=== PATIENT | male | born 1970 ===

== ENCOUNTER 2017-02-15 08:24 | Day surgery (SDC) | payer OTHER ==
--- NOTE | 2017-02-14 15:36 | GHP ---
[f rep st] PREOP HISTORY AND PHYSICAL DATE OF ADMISSION: 02/15/2017 DIAGNOSIS: Left knee medial meniscal tear. PLANNED SURGERY: Left knee arthroscopic partial medial meniscectomy. HISTORY OF PRESENT ILLNESS: The patient is a 46-year-old male with a long history of left knee pain. Subsequent MRI has shown a tear in the medial meniscus. After a course of conservative treatment, he has failed that and now opts for surgical intervention. PAST MEDICAL HISTORY: Negative. PAST SURGICAL HISTORY: Negative. MEDICATIONS: Ibuprofen and fish oil. ALLERGIES: No known drug allergies. SOCIAL HISTORY: Occasional alcohol use. No tobacco or drug use. PHYSICAL EXAMINATION: GENERAL: The patient is alert and oriented x3. NECK: Supple. Full range of motion. No carotid bruits are heard. CARDIAC: Shows a regular rate and rhythm. Normal S1, S2. N o murmurs, rubs, or gallops. PULMONARY: Shows lungs are clear to auscultation bilaterally. ABDOMEN : Shows normal active bowel sounds. Nontender, nondistended. ASSESSMENT/PLAN: The patient presents with a long history of left knee pain secondary to a work [employer]. Subsequent MRI has shown a tear in the medial meniscus and, after failing conservative treatment , he opts for surgical intervention. /[id number]/MODL
--- NOTE | 2017-02-15 07:24 | PDHPUP ---
History & Physical Update H&P update statement: This history and physical update is based on an assessment of the patient which was completed after admission or registration (within 24 hours), but prior to the surgery/procedure. H&P update: H&P reviewed & patient examined, no change in patient's condition since H&P completed
[2017-02-15] MEDS ORDERED: LR 1,000 ML IV ONE (08:38)
[2017-02-15] MEDS ORDERED: BUPIVACAINE/EPI 0.5% 30 ML SDV ONE (08:42)
[2017-02-15 08:44] VITALS: PULSE 73
--- NOTE | 2017-02-15 09:09 | PDANEPAE ---
ANE History of Present Illness L knee arthroscopy ANE Past Medical History - Cardiovascular History Hx Hypertension: No Hx Arrhythmias: No Hx Chest Pain: No Hx Coronary Artery / Peripheral Vascular Disease: No Hx CHF / Valvular Disease: No Hx Palpitations: No - Pulmonary History Hx COPD: No Hx Asthma/Reactive Airway Disease: No Hx Recent Upper Respiratory Infection: No Hx Oxygen in Use at Home: No Hx Sleep Apnea: No Sleep Apnea Screening Result - Last Documented: Negative - Neurologic History Hx Cerebrovascular Accident: No Hx Seizures: No Hx Dementia: No - Endocrine History Hx Diabetes: No Obesity: mild - Renal History Hx Renal Disorders: No - Liver History Hx Hepatic Disorders: No - Neurological & Psychiatric Hx Hx Neurological and Psychiatric Disorders: No - Cancer History Hx Cancer: No - Congenital Disorder History Hx Congenital Disorders: No - GI History Hx Gastrointestinal Disorders: No - Other Health History Other Health History: none - Chronic Pain History Chronic Pain: Yes (left knee) - Surgical History Prior Surgeries: ingrown hair/ skin removal from back 15-17 yrs ago : Possible pilonidal cyst ANE Review of Systems Review of Systems: - Exercise capacity METS (RN): 4 METS ANE Patient History - Allergies Allergies/Adverse Reactions: No Known Allergies Allergy (Verified 01/21/17 10:23) - Home Medications Home Medications: Fish Oil 1,000 mg Capsule 01/21/17 [Last Taken Unknown] - NPO status NPO Since - Liquids (Date): 02/14/17 NPO Since - Liquids (Time): 18:30 NPO Since - Solids (Date): 02/14/17 NPO Since - Solids (Time): 18:30 - Anes Hx Anes Hx: no prior problems (stopped 20 years ago) - Smoking Hx Smoking Status: Former smoker Marijuana use: No - Alcohol Use Alcohol Use: Occasionally (2 drinks per week) - Family Anes Hx Family Hx Anesthesia Complications: none ANE Labs/Vital Signs - Vital Signs Blood Pressure: 131/85 Heart Rate: 73 Respiratory Rate: 18 O2 Sat (%): 96 Height: 170.18 cm Weight: 86.183 kg ANE Physical Exam - Airway Neck exam: FROM Mallampati Score: Class 2 Mouth exam: normal dental/mouth exam - Pulmonary Pulmonary: clear to auscultation - Cardiovascular Cardiovascular: regular rate and rhythym - ASA Status ASA Status: I ANE Anesthesia Plan Anesthesia Plan: GA w LMA (pt reports he gets car sick easily, will use prophylactic Scopolamine patch)
[2017-02-15] MEDS ORDERED: MIDAZOLAM 2 MG/2 ML VIAL IVP ONE (09:12)
[2017-02-15] MEDS ORDERED: PROPOFOL 200 MG/20 ML VIAL ONE ×2 (09:16→09:21)
[2017-02-15] MEDS ORDERED: fentaNYL 100 MCG/2 ML INJ ONE (09:16)
[2017-02-15] MEDS ORDERED: MIDAZOLAM 2 MG/2 ML VIAL ONE (09:17)
[2017-02-15] MEDS ORDERED: SCOPOLAMINE HYDROBROMIDE 1 MG/3 DAYS PATCH TD ONE ×2 (09:17→09:19)
[2017-02-15] MEDS ORDERED: ceFAZolin 1 GM VIAL ONE ×2 (09:40)
[2017-02-15] MEDS ORDERED: ONDANSETRON 4 MG/2 ML VIAL ONE (10:08)
[2017-02-15] MEDS ORDERED: METOCLOPRAMIDE 10 MG/2 ML VIAL IVP PRN (10:49)
[2017-02-15] MEDS ORDERED: CYCLOBENZAPRINE 10 MG TAB PO PRN (10:49)
[2017-02-15] MEDS ORDERED: BISACODYL 10 MG SUPP PR PRN (10:49)
[2017-02-15] MEDS ORDERED: MAGNESIUM HYDROXIDE 30 ML UDCUP PO PRN (10:49)
[2017-02-15] MEDS ORDERED: TEMAZEPAM 15 MG CAP PO PRN (10:49)
[2017-02-15] MEDS ORDERED: PROMETHAZINE HCL 25 MG/ML INJ IVP PRN (10:49)
[2017-02-15] MEDS ORDERED: POLYETHYLENE GLYCOL 3350 17 GM PKT PO PRN (10:49)
[2017-02-15] MEDS ORDERED: diphenhydrAMINE 25 MG CAP PO PRN (10:49)
[2017-02-15] MEDS ORDERED: PROMETHAZINE HCL 25 MG SUPPR PR PRN (10:49)
[2017-02-15] MEDS ORDERED: ONDANSETRON DISINTEGRATING 4 MG TAB PO PRN (10:49)
[2017-02-15] MEDS ORDERED: oxyCODONE IR 5 MG TAB PO PRN (10:49)
[2017-02-15] MEDS ORDERED: ONDANSETRON 4 MG/2 ML VIAL IVP PRN (10:49)
[2017-02-15] MEDS ORDERED: LACTULOSE 20 GM/30 ML UDCUP PO PRN (10:49)
--- NOTE | 2017-02-15 10:49 | POSTOPPROG ---
Post Op Note Date of Operation: 02/15/17 Surgeon: Lelia Mccollum Anesthesiologist: elysia Anesthesia: LMA Pre-op Diagnosis: l mmt Procedure: l knee scope with p[artial med menisectomy Inf/Abcess present in the surg proc area at time of surgery?: No Depth: Deep Incisional (Fascial) EBL: 50-100
[2017-02-15] MEDS ORDERED: ceFAZolin 2 GM/SWFI 2 GM/20 ML SYR IVP ONE (10:52)
[2017-02-15] MEDS ORDERED: fentaNYL 100 MCG/2 ML INJ IVP PRN (10:56)
[2017-02-15] MEDS ORDERED: NALOXONE HCL 0.4 MG/ML INJ IVP PRN (10:56)
[2017-02-15] MEDS ORDERED: OXYCODONE/APAP 5/325 TAB PO PRN (10:57)
[2017-02-15] MEDS ORDERED: OXYCODONE/APAP 5/325 TAB ONE (11:20)
[2017-02-15 11:31] VITALS: TEMP 97.3
[2017-02-15 11:50] VITALS: RESP 16; O2SAT 96
[2017-02-15] MEDS ORDERED: ACETAMINOPHEN 325 MG TAB PO SCH (12:00)
--- NOTE | 2017-02-15 12:09 | GOP ---
[f rep st] OPERATIVE REPORT DATE OF OPERATION: 02/15/2017 SURGEON: Lelia Mccollum MD ANESTHESIA: LMA. PREOPERATIVE DIAGNOSIS: Left medial meniscal tear. POSTOPERATIVE DIAGNOSIS: 1. Left medial meniscal tear. 2. Synovitis. 3. Inflamed plica. PROCEDURE PERFORMED: 1. Left knee arthroscopy. 2. Partial medial meniscectomy. 3. Removal of plica. 4. Synovectomy. FINDINGS: INDICATIONS: This is a 46-year-old male, solutions executive security at [employer], who began to have pain at work when ambulating and if he tried to increase his rate of speed, it caused greater pa in. He felt and heard a pop within the knee. MRI revealed a posterior horn medial meniscal tear. Librado peraza wishes to have surgery in order to resolve the problem. DESCRIPTION OF PROCEDURE: The patient was brought to the operating room after the left side had been identified as the correct side by the patient, nurse and physician. Once in the operating room, he was placed under general anesthesia using an LMA. Once asleep, he had a tourniquet placed around the upper portion of the left thigh, and both legs placed in appropriate leg junior. The left lower ext remity was then sterilely prepped and draped in the usual fashion using ANDRES solution. Once prepped a nd draped, the limb was exsanguinated and the tourniquet inflated to 250 mmHg. An incision was made in the superomedial portion of the knee with an outflow trocar introduced withou t difficulty. A second incision was made lateral to the patellar tendon between the inferior pole of the patella and tibial plateau with the camera introduced without difficulty. Inspection of the emily nt revealed no loose bodies in the suprapatellar pouch. In the medial and lateral gutters, there was abundant amount of synovitis within the anterior portion of the knee, as well as large plica both me dially and laterally. There were no chondral changes noted to the patella or the trochlea. Further inspection revealed the ACL to be intact. Inspection of the medial compartment revealed no cartilage injury, but a vertical tear of the posterior horn near the root of the medial meniscus. Inspection of the lateral compartment revealed no meniscal tears and no chondral changes. Therefore, a third incision was made medial to the patellar tendon between the inferior pole of the p atella and tibial plateau. Alternating using a straight biter and a 4.0 mm smooth shaver, were used to debride both tears of the posterior horn of the medial meniscus. Once completed, the abundant amount of synovium in the anterior portion of the knee was also removed, as well as the medial and lateral plica, which inhibited visualization of the anterior portion of th e knee. Once completed, all instruments were removed from the knee, with 30 mL of Marcaine infused in the emily nt. The three portal sites were closed using 3-0 nylon suture in a [id number] type stitch. The wounds were dressed with Xeroform, 4x4, and Webril. The tourniquet was released at 34 minutes. The leg was completely undraped in the operating room. The leg junior was removed as well as the tourni quet on the thigh. He had an Fly wrap placed around the knee. The right leg was taken out of its le g junior. He was placed supine. He was woken up, extubated, transferred onto a stretcher, and sent to the recovery room in good condition. TOURNIQUET TIME: 34 minutes. /[id number]/MODL
[2017-02-15 13:04] VITALS: BP 115/72
[2017-02-15] MEDS ORDERED: FAMOTIDINE 20 MG TAB PO SCH (21:00)
[2017-02-15] MEDS ORDERED: ASPIRIN 325 MG TAB PO SCH (21:00)
[2017-02-15] MEDS ORDERED: SENNOSIDES/DOCUSATE SODIUM TAB PO SCH (21:00)
[2017-02-16] MEDS ORDERED: PATCH REMOVAL 1 EA PATCH TD ONE (09:20)
== END 2017-02-15 12:45 | disposition home or self-care (01) ==
LOC: FSGY 08:24
PROVIDERS: ATTEND Orthopaedic Surgery
PROC: 0SBD4ZZ Excision of Left Knee Joint, Percutaneous Endoscopic Approach (ICD-10-PCS; principal; 2017-02-15 10:00)
DX: S83.232A Complex tear of medial meniscus, current injury, left knee, initial encounter (principal); M67.52 Plica syndrome, left knee; M65.9 Synovitis and tenosynovitis, unspecified; X50.0XXA Overexertion from strenuous movement or load, initial encounter; Y99.0 Civilian activity done for income or pay
CPT/HCPCS: J0690; J2250; J2405; J2704; J3010

== ENCOUNTER → 2018-09-22 | Outpatient (CLI) | payer OTHER | LOC: FIMAGING 20:21 ==